=== PATIENT | male | born 1990 ===

== ENCOUNTER 2020-06-06 17:35 | Emergency (ER) | payer OTHER ==
[~2020-06-06] VITALS: Ht 167.6 cm; Wt 101.2 kg
== END 2020-06-06 20:30 | disposition home or self-care (01) ==
LOC: ER 17:35
DX: S61.422A Laceration with foreign body of left hand, initial encounter (principal); W25.XXXA Contact with sharp glass, initial encounter; Y93.89 Activity, other specified; Y92.89 Other specified places as the place of occurrence of the external cause; Y99.8 Other external cause status